=== PATIENT | male | born 1975 | race Caucasian/White ===

== ENCOUNTER 2016-07-18 15:17 | Emergency (ER) | payer OTHER ==
[2016-07-18 16:15] VITALS: BP 118/73
--- NOTE | 2016-07-18 16:38 | ED Physician Documentation ---
PD HPI LOWER EXT INJURY - Stated complaint Stated Complaint: R ANKLE/LEFT KNEE INJ - Chief complaint Chief Complaint: Ext Problem - History obtained from History obtained from: Patient - History of Present Illness PD HPI LOW EXT INJURY LOCATION: Left, Knee Type of injury: Twist Where injury occurred: Work Timing - onset: Today Timing - duration: Hours Timing - details: Abrupt onset, Still present Improved by: Rest, Immobilization Worsened by: Moving, Palpating Associated symptoms: Swelling. 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 Review of Systems Constitutional: denies: Fever Eyes: denies: Decreased vision Ears: denies: Ear pain Nose: denies: Congestion Throat: denies: Sore throat Cardiac: denies: Chest pain / pressure Respiratory: denies: Cough GI: denies: Nausea, Vomiting : denies: Dysuria PD PAST MEDICAL HISTORY - Past Medical History Past Medical History: No Cardiovascular: None Respiratory: None Endocrine/Autoimmune: None GI: None : None HEENT: None Psych: None Musculoskeletal: None Derm: None - Past Surgical History Past Surgical History: Yes General: Other Ortho: Other - Present Medications Home Medications: Ambulatory Orders Medication Instructions Recorded Confirmed HYDROcod/ACETAM 5/325 [[place] 5/325] 1 - 2 ea PO Q6H PRN #15 tablet 07/18/16 Ibuprofen 800 mg PO 07/18/16 - Allergies Allergies/Adverse Reactions: Allergies Allergy/AdvReac Type Severity Reaction Status Date / Time No Known Drug Allergies Allergy Verified 07/18/16 15:33 - Social History Does the pt smoke?: No Smoking Status: Former smoker Does the pt drink ETOH?: No Does the pt have substance abuse?: No - Immunizations Immunizations are current?: Yes PD ED PE NORMAL - Vitals Vital signs reviewed: Yes (hypertensive ) - General General: No acute distress, Well developed/nourished - HEENT HEENT: Atraumatic - Respiratory Respiratory: No respiratory distress - Derm Derm: Normal color, Warm and dry, No rash - Extremities Extremities: No deformity, No edema, Other (There is tenderness to the medial joint line and there is no ligamentous laxity. There is not a palpable effusion. ) - Neuro Neuro: No motor deficit, No sensory deficit - Psych Psych: Normal mood, Normal affect Results - Vitals Vitals: Vital Signs - 24 hr 07/18/16 07/18/16 15:28 16:13 Temperature 36.8 C 36.7 C Heart Rate 94 97 Respiratory 16 13 Rate Blood Pressure 140/70 H 118/73 O2 Saturation 95 98 Oxygen O2 Source Room air - Rads (name of study) left knee Radiology: Prelim report reviewed (impression: Normal knee radiography. ), EMP read indepedently, See rad report Procedures - Splint (location) knee Splint applied by: Tech Type of splint: Other (knee immobilizer) Other: Patient tolerated well, No complications, Neurovascular intact, Good alignment PD MEDICAL DECISION MAKING - ED course Complexity details: reviewed results, re-evaluated patient, considered differential, d/w patient ED course: 41 y/o male with pain in the medial joint line of the left knee after varus forces. He is placed into a knee immobilier Departure - Departure Disposition: 01 Home, Self Care Clinical Impression: Sprain of left knee Qualifiers: Encounter type: initial encounter Involved ligament of knee: unspecified ligament Qualified Code(s): S83.92XA - Sprain of unspecified site of left knee, initial encounter Condition: Stable Instructions: ED Sprain Knee Follow-Up: Nohelia Velasquez PA-C [Primary Care Provider] - Corinna Finch MD [Provider Admit Priv/Credential] - Prescriptions: HYDROcod/ACETAM 5/325 [[place] 5/325] 1 - 2 ea PO Q6H PRN #15 tablet PRN Reason: Pain Forms: Activity restrictions
--- NOTE | 2016-07-18 17:12 | XRAY Preliminary Report ---
Exam: XR Knee 4 View LT IMPRESSION: Normal knee radiography. [facility] SITE ID: [id number]
--- NOTE | 2016-07-18 17:15 | XRAY Report ---
EXAM: LEFT KNEE RADIOGRAPHY EXAM DATE: 07/18/2016 04:41 PM. CLINICAL HISTORY: Medial left knee pain. COMPARISON: None. TECHNIQUE: 3 views. FINDINGS: Bones: Normal. No fractures or bone lesions. Joints: Normal alignment. Joint spaces are maintained. No effusion. Soft Tissues: Normal. No soft tissue swelling. IMPRESSION: Normal knee radiography. [facility] Referring Provider Line: [phone] SITE ID: [id number]
== END 2016-07-18 17:36 | disposition home or self-care (01) ==
LOC: ED 15:17
DX: S83.92XA Sprain of unspecified site of left knee, initial encounter (principal); X58.XXXA Exposure to other specified factors, initial encounter; Y93.89 Activity, other specified; Y99.0 Civilian activity done for income or pay
CPT/HCPCS: 1040M; 73564; 99283

== ENCOUNTER 2018-10-30 08:00 | Outpatient (CLI) | payer BC, OTHER ==
[2018-10-30 18:29] LABS: HGB - HEMOGLOBIN 12.5 g/dL (14.0-18.0); MEAN CORPUSCULAR HGB CONC 32.8 g/dL (32.0-36.0); MEAN CORPUSCULAR VOLUME 91.4 fL (80.0-94.0); MEAN PLATELET VOLUME 8.7 fL (7.4-11.4); RED BLOOD COUNT 4.17 10^6/uL (4.70-6.10); WHITE BLOOD COUNT 12.6 x10^3/uL (4.8-10.8)
== END 2018-10-30 23:59 | disposition home or self-care (01) ==
LOC: LAB.WCP 08:00
PROVIDERS: ATTEND Orthopaedic Surgery
DX: Z01.818 Encounter for other preprocedural examination (principal)
CPT/HCPCS: 36415; 85027

== ENCOUNTER 2019-09-27 15:00 | Outpatient (CLI) | payer OTHER ==
--- NOTE | 2019-09-27 14:16 | XRAY Report ---
PROCEDURE: Ribs 2 View RT INDICATIONS: PLEURODYNIA- RT SIDE TECHNIQUE: 2 views of the right ribs were acquired. COMPARISON: Correlation is made with the accompanying chest radiograph 09/27/2019 FINDINGS: Surgical changes and devices: None. Bones and chest wall: A marker is placed upon the area of pain. At this site, no fractures are seen. No fractures or dislocations are seen elsewhere. No suspicious bony lesions. The overlying soft ti ssues appear unremarkable. Lungs and pleura: The visualized lung appears clear. No pleural effusions or pneumothorax are visib le. IMPRESSION: No discrete rib fractures are seen. Reviewed by: Abiel Keys MD on 09/27/2019 1:15 PM ANAT Approved by: Abiel Keys MD on 09/27/2019 1:15 PM ANAT Station ID: [id number]
--- NOTE | 2019-09-27 14:18 | XRAY Report ---
PROCEDURE: Chest 2 View X-Ray INDICATIONS: PLEURODYNIA- RT SIDE TECHNIQUE: 2 view(s) of the chest. COMPARISON: Correlation is made with the accompanying rib plain films 09/27/2019 FINDINGS: Surgical changes and devices: None. Lungs and pleura: No pleural effusions or pneumothorax. Lungs are clear. Mediastinum: Mediastinal contours are normal. Heart size is normal. Bones and chest wall: No suspicious bony abnormalities. No displaced rib fractures are seen. Soft tissues appear unremarkable. IMPRESSION: No displaced rib fractures are seen. No pneumothorax. Reviewed by: Abiel Keys MD on 09/27/2019 1:16 PM ANAT Approved by: Abiel Keys MD on 09/27/2019 1:16 PM AKDT Station ID: [id number]
== END 2019-09-27 15:30 | disposition home or self-care (01) ==
LOC: DI 15:00
PROVIDERS: ATTEND Physician Assistant
DX: R07.81 Pleurodynia (principal); R07.1 Chest pain on breathing
CPT/HCPCS: 71046

== ENCOUNTER 2023-07-10 07:50 | Outpatient (CLI) | payer OTHER | END 2023-07-10 23:59 | disposition critical access hospital (66) | LOC: EMS 07:50 | DX: R55 Syncope and collapse (principal) | CPT/HCPCS: A0425; A0429 ==

== ENCOUNTER 2023-07-10 08:02 | Emergency (ER) | payer OTHER ==
--- NOTE | 2023-07-10 08:16 | ED Physician Documentation ---
PD HPI SYNCOPE - Stated complaint Stated Complaint: SYNCOPAL EPISODE - History obtained from History obtained from: Patient - History of Present Illness Witnessed: Unwitnessed (he fainted in garage anddaughter came right out then . Pt seemed pale/dusky and apparently not breathing for sure. started chest compressions. Pt roused and groaned soome after. He was blank stare though and not responding otherwise. He was starting to talk by EMS arrival several minutes.) Timing - onset: How many minutes ago (3-4) Duration: Minutes Preceding symptoms: None. No: Headache, Chest pain Associated symptoms: No: Seizure ( did not see any seizure like movements.), Headache, Chest pain, Palpitations, Nausea / vomiting, Abdominal pain Contributing factors: No: Decreased PO intake, Noxious stimulae, Just stood up Injury occurred: No: Head injury, Neck injury Treatment [employer]: Fluids Review of Systems Constitutional: denies: Fever, Chills Nose: denies: Rhinorrhea / runny nose, Congestion Throat: denies: Sore throat Cardiac: denies: Chest pain / pressure, Palpitations, Pedal edema, Calf pain Respiratory: denies: Dyspnea, Cough GI: denies: Abdominal Pain, Nausea, Vomiting, Diarrhea, Bloody / black stool Neurologic: denies: Headache, Head injury PD PAST MEDICAL HISTORY - Past Medical History Cardiovascular: None Respiratory: None Endocrine/Autoimmune: None GI: None : None HEENT: None Psych: None Musculoskeletal: None Derm: None - Past Surgical History Past Surgical History: Yes General: Other Ortho: Other - Present Medications Home Medications: Ambulatory Orders Medication Instructions Recorded Confirmed HYDROcod/ACETAM 5/325 [[place] 5/325] 1 - 2 ea PO Q6H PRN #15 tablet 07/18/16 07/10/23 Ibuprofen 800 mg PO PRN PRN 07/18/16 07/10/23 - Allergies Allergies/Adverse Reactions: Allergies Allergy/AdvReac Type Severity Reaction Status Date / Time No Known Drug Allergies Allergy Verified 07/10/23 08:18 - Living Situation Living Situation: reports: With spouse/s.o. Living Arrangement: reports: At home - Social History Does the pt smoke?: No Smoking Status: Former smoker Does the pt drink ETOH?: No Does the pt have substance abuse?: No - Immunizations Immunizations are current?: Yes PD ED PE NORMAL - Vitals Vital signs reviewed: Yes (sats appear to fluctuate from 86-96% over course of seconds to minute.) - General General: Alert and oriented X 3, No acute distress, Well developed/nourished - HEENT HEENT: Atraumatic, Pharynx benign, Other (no tongue nor lip lesions) - Neck Neck: Supple, no meningeal sign, No adenopathy - Cardiac Cardiac: RRR, No murmur - Respiratory Respiratory: Clear bilaterally - Abdomen Abdomen: Soft, Non tender - Back Back: No spinal TTP - Derm Derm: Normal color, Warm and dry - Extremities Extremities: Normal ROM s pain - Neuro Neuro: Alert and oriented X 3, first beater 2-12 intact, No motor deficit, No sensory deficit, Normal speech Results - Vitals Vitals: Vital Signs - 24 hr 07/10/23 07/10/23 07/10/23 08:09 08:47 09:30 Temperature 36.9 C Heart Rate 107 H 88 80 Respiratory 15 18 11 L Rate Blood Pressure 170/127 H 163/106 H 141/93 H O2 Saturation 86 L 97 97 If not protocol 2 : Oxygen Flow, liters/minute 07/10/23 07/10/23 07/10/23 10:00 10:30 11:00 Temperature Heart Rate 78 83 77 Respiratory 9 L 13 14 Rate Blood Pressure 145/98 H 159/108 H 156/105 H O2 Saturation 97 95 96 If not protocol : Oxygen Flow, liters/minute 07/10/23 11:30 Temperature 36.7 C Heart Rate 80 Respiratory 13 Rate Blood Pressure 141/103 H O2 Saturation 95 If not protocol : Oxygen Flow, liters/minute Oxygen O2 Source Room air - EKG (time done) 08:15 EKG releavant findings:: EKG personally interpreted by author of this note. Relevant findings are: Rate: Rate (enter#) (96) Rhythm: NSR [place]: Normal Intervals: Normal VA QRS: Normal Ischemia: Normal ST segments. No: ST elevation c/w ischemia, ST depression - Labs Labs: Laboratory Tests 07/10/23 07/10/23 07/10/23 08:10 08:10 08:10 WBC 8.4 RBC 4.64 L Hgb 13.3 L Hct 40.9 L MCV 88.1 MCH 28.7 MCHC 32.5 RDW 14.0 Plt Count 224 MPV 8.4 Neut # (Auto) 5.0 Lymph # (Auto) 2.5 [place] # (Auto) 0.8 Eos # (Auto) 0.1 Baso # (Auto) 0.0 Absolute Nucleated RBC 0.00 Nucleated RBC % 0.0 Sodium 135 Potassium 3.5 Chloride 99 L Carbon Dioxide 29 Anion Gap 7.0 BUN 18 Creatinine 1.2 Estimated GFR (MDRD) 65 L Glucose 185 H Calcium 9.4 Magnesium 2.0 Total Bilirubin 0.6 AST 18 ALT 22 Alkaline Phosphatase 50 Troponin I High Sens 9.9 B-Natriuretic Peptide 37 Total Protein 7.1 Albumin 4.4 Globulin 2.7 Albumin/Globulin Ratio 1.6 Lipase < 10 L Prolactin 52.07 Salicylates < 1.5 Urine Opiates Screen Ur Buprenorphine Scrn Ur Oxycodone Screen Urine Methadone Screen Acetaminophen 0.2 Ur Barbiturates Screen Ur Tricyclics Screen Ur Phencyclidine Scrn Ur Amphetamine Screen U Methamphetamines Scrn U Benzodiazepines Scrn Urine Cocaine Screen U Cannabinoids Screen Ur Drug Screen Comment Ethyl Alcohol < 10.0 07/10/23 10:15 WBC RBC Hgb Hct MCV MCH MCHC RDW Plt Count MPV Neut # (Auto) Lymph # (Auto) [place] # (Auto) Eos # (Auto) Baso # (Auto) Absolute Nucleated RBC Nucleated RBC % Sodium Potassium Chloride Carbon Dioxide Anion Gap BUN Creatinine Estimated GFR (MDRD) Glucose Calcium Magnesium Total Bilirubin AST ALT Alkaline Phosphatase Troponin I High Sens B-Natriuretic Peptide Total Protein Albumin Globulin Albumin/Globulin Ratio Lipase Prolactin Salicylates Urine Opiates Screen NEGATIVE Ur Buprenorphine Scrn NEGATIVE Ur Oxycodone Screen NEGATIVE Urine Methadone Screen NEGATIVE Acetaminophen Ur Barbiturates Screen NEGATIVE Ur Tricyclics Screen NEGATIVE Ur Phencyclidine Scrn NEGATIVE Ur Amphetamine Screen NEGATIVE U Methamphetamines Scrn NEGATIVE U Benzodiazepines Scrn NEGATIVE Urine Cocaine Screen NEGATIVE U Cannabinoids Screen POSITIVE H Ur Drug Screen Comment CUTOFF CONC BELOW: Ethyl Alcohol - Rads (name of study) chest xray Relevant Findings:: Prelim report reviewed, EMP independent interpretation of test (no acute process) head CT Relevant Findings:: Prelim report reviewed (no acute process. No ICH.), EMP independent interpretation of test chest angio Relevant Findings:: Prelim report reviewed (no central emboli nor other acute parenchymal process. Artifact symettrically in periphery so cannot exclude small PEs. ) PD Medical Decision Making - ED course Complexity details: reviewed results (normal ECG and troponin, lytes, blood sugar. CXR. Head CT also normal without signs of bleeding, edema, mass. CT-A of chest done as his sats seemed to fluctuate initially in ED with good pleth reading. This showed no central PE (symmetric artifact contrast timing? peripherally).), considered differential (Patient is feeling okay here without lightheadedness. Normal vitals during ED stay. Unclear cause of his symptoms/episode. ), d/w patient ED course: The patient had syncope for which states he appeared dusky and did not appear breathing.She did CPR until he awoke and moving, but then he still seemed dazed. Conversant but confused nEMS arrival per medics. Pt states some chest soreness feeling musculoskeletal (presume from CPR). No headache. Did not have chest pain nor other pains prior to syncoope, no warning symptoms. Apparently with similar syncope not witnessed a week ago. [place] okay in the interval. Consideration of intermittent arrhythmia. He has normal ECG here with normal QT interval and monitor here without ectopy. On exam, no tongue nor lip lesions to correlate with seizures, and states no obvious seizure movements, but does not exclude it. He does have elevated prolactin level but is not specific to seizure, as can elevate in syncope as well, but is reasonably elevated. So seizure consideation. I talked with Dr. Fernandez's office nurse. He is out today but she will pass on note to [employer] provider that I was suggesting [employer] and consider neuro consult/EEG. Pt with followup appt July 23 scheduled by our [facility]. Syncope but not obvious seizure so I did not report to [facility]. Departure - Departure Disposition: Home, Self Care Clinical Impression: Syncopal episodes Condition: Stable Record reviewed to determine appropriate education?: Yes Instructions: ED Fainting Unkn Cause Comments: Your CT scan of the head does not show any signs of bleeding or tumors or swelling. The CT of your chest does not show any signs of obvious enlarged heart, heart failure, blood clots. There was some slight artifact that likely relates to timing of the dye contrast. The radiology reading was some artifact on the scan so unable to conclude no very small blood clots in the periphery of the lungs. However larger central clots are the ones that would cause symptoms such as yours and those are negative. No signs of heart attack or abnormal heart rhythms here. A blood test called prolactin was elevated which can correlate with seizure type activity but could elevate with just a fainting episode 2. Considerations therefore are in intermittent irregular heart rhythm which can cause improper blood flow to the brain and cause fainting episodes. This would want to be evaluated with a wearable heart monitor that you wear over the course of a week or so. Other consideration could be new onset seizures and could present with the sym ptoms you have had. This also would likely want further testing to evaluate such as an EEG. I would suggest no working with hand power tools such as [employer] etc. or up working on [employer] and not driving until follow-up with your primary care such that if you have another fainting episode it is not in a dangerous place. I was going to talk with your primary care about these tests that could be done prior to your follow-up visit. He has not called back as yet but I will talk to him when he does. Forms: PCP List Discharge Date/Time: 07/10/23 11:31
[2023-07-10 08:29] LABS: BASOPHILS % (AUTO) 0.5 %; EOSINOPHILS # (AUTO) 0.1 10^3/uL (0.0-0.7); EOSINOPHILS % (AUTO) 1.4 %; HCT - HEMATOCRIT 40.9 % (42.0-52.0); HGB - HEMOGLOBIN 13.3 g/dL (14.0-18.0); LYMPHOCYTES # (AUTO) 2.5 10^3/uL (1.5-3.5); LYMPHOCYTES % (AUTO) 29.2 %; MEAN CORPUSCULAR HEMOGLOBIN 28.7 pg (27.0-31.0); MEAN CORPUSCULAR HGB CONC 32.5 g/dL (32.0-36.0); MEAN CORPUSCULAR VOLUME 88.1 fL (80.0-94.0); MEAN PLATELET VOLUME 8.4 fL (7.4-11.4); MONOCYTES # (AUTO) 0.8 10^3/uL (0.0-1.0); MONOCYTES % (AUTO) 9.6 %; NEUTROPHILS % (AUTO) 59.1 %; PLT - PLATELET COUNT 224 10^3/uL (130-450); RED BLOOD COUNT 4.64 10^6/uL (4.70-6.10); WHITE BLOOD COUNT 8.4 x10^3/uL (4.8-10.8)
[2023-07-10] MEDS ORDERED: iohexoL-300 100 ML VIAL ONE (08:41)
[2023-07-10 08:42] LABS: ACETAMINOPHEN 0.2 ug/mL; ALBUMIN 4.4 g/dL (3.2-5.5); ALBUMIN/GLOBULIN RATIO 1.6 (1.0-2.2); ALKALINE PHOSPHATASE 50 IU/L (42-121); ALT ALANINE AMINOTRANSFERASE 22 IU/L (10-60); AST ASPARTATE AMINOTRANSFERASE 18 IU/L (10-42); BILIRUBIN,TOTAL 0.6 mg/dL (0.2-1.0); BUN - BLOOD UREA NITROGEN 18 mg/dL (6-20); CALCIUM 9.4 mg/dL (8.5-10.3); CARBON DIOXIDE - CO2 29 mmol/L (21-32); CHLORIDE 99 mmol/L (101-111); CREATININE 1.2 mg/dL (0.6-1.3); ETOH - ETHANOL < 10.0 mg/dL; GFR - MDRD 65 (>89); GLUCOSE 185 mg/dL (74-104); POTASSIUM 3.5 mmol/L (3.5-4.5); SODIUM 135 mmol/L (135-145); TOTAL PROTEIN 7.1 g/dL (6.4-8.9)
--- NOTE | 2023-07-10 08:42 | XRAY Report ---
PROCEDURE: Chest 1V INDICATIONS: chest pain TECHNIQUE: One view of the chest was acquired. COMPARISON: 09/27/2019 FINDINGS: Surgical changes and devices: None. Lungs and pleura: No pleural effusions or pneumothorax. Lungs are clear. Mediastinum: Mediastinal contours appear normal. Heart size is normal. Bones and chest wall: No suspicious bony lesions. Overlying soft tissues appear unremarkable. IMPRESSION: No acute cardiopulmonary process. Reviewed by: Timoteo Cartagena MD on 07/10/2023 8:40 AM PDT Approved by: Timoteo Cartagena MD on 07/10/2023 8:40 AM PDT Station ID: [id number]
[2023-07-10 08:46] LABS: TROPONIN I HIGH SENSITIVITY 9.9 ng/L (2.3-19.7)
[2023-07-10] MEDS: SODIUM CHLORIDE 0.9% 1,000 ML IV STA (08:46)
[2023-07-10 08:52] LABS: LIPASE < 10 U/L (11-82); SALICYLATE < 1.5 mg/dL
--- NOTE | 2023-07-10 08:57 | CT Report ---
PROCEDURE: Head WO INDICATIONS: fall, struck head TECHNIQUE: Noncontrast 4.5 mm thick angled axial sections acquired from the foramen magnum to the vertex. For r adiation dose reduction, the following was used: automated exposure control, adjustment of mA and/or kV according to patient size. COMPARISON: None. FINDINGS: Image quality: Excellent. CSF spaces: Basal cisterns are patent. No extra-axial fluid collections. Ventricles are normal in size and shape. Brain: No midline shift. No intracranial masses or hemorrhage. Lau-white matter interface is norm al. Skull and face: Calvarium and visualized facial bones are intact, without suspicious lesions. Sinuses: Visualized sinuses and mastoids are clear. IMPRESSION: No acute intracranial pathology. Reviewed by: Yoana Kwong MD on 07/10/2023 8:55 AM PDT Approved by: Yoana Kwong MD on 07/10/2023 8:55 AM PDT Station ID: [id number]
--- NOTE | 2023-07-10 08:59 | CT Report ---
PROCEDURE: Angio Chest INDICATIONS: syncope, hypoxia CONTRAST: Omni 300 80ml TECHNIQUE: After the administration of intravenous contrast, 2 mm axial images were acquired from the pulmonary apices to the posterior costophrenic angles during the arterial phase. In addition, 1 mm lung kernel and 5 mm soft tissue kernel reconstructions were performed. 3-dimensional coronal oblique maximum int ensity projection (MIP) reformats, 8 mm axial MIP, and 5 mm coronal and sagittal MPR reformats were t hen performed through the thorax. For radiation dose reduction, the following was used: automated exp osure control, adjustment of mA and/or kV according to patient size. COMPARISON: Chest x-ray 07/10/2023 FINDINGS: Image quality: Artifact is present within the segmental branches of the pulmonary arteries bilaterall y. Large vessels: No filling defects within the opacified pulmonary arteries, accounting for motion and contrast timing there is heterogeneous appearance within the majority of the segmental branches of th e pulmonary arteries bilaterally. Lungs and pleura: No consolidation. No pleural effusions. No pneumothorax. No suspicious pulmonary n odules which require follow up. Mediastinum: Heart size is normal. No pericardial effusion. No large vessel abnormality. No mediastin al adenopathy by size criteria. Chest wall and lower neck: Thyroid is unremarkable. No axillary or supraclavicular adenopathy by size . Bones: No aggressive osseous abnormality. Upper Abdomen: Unremarkable. IMPRESSION: No central pulmonary embolus. There is a heterogeneous appearance of the segmental branches bilateral ly. While this is suspected to be artifactual given diffuse appearance, emboli cannot be definitively excluded. Reviewed by: Yoana Kwong MD on 07/10/2023 8:58 AM PDT Approved by: Yoana Kwong MD on 07/10/2023 8:58 AM PDT Station ID: [id number]
[2023-07-10 09:00] LABS: PROLACTIN 52.07 ng/mL
[2023-07-10 10:44] LABS: AMPHETAMINE SCREEN,URINE NEGATIVE (NEGATIVE); BARBITURATE SCREEN,UR NEGATIVE (NEGATIVE); BENZODIAZEPINES SCREEN, URINE NEGATIVE (NEGATIVE); BUPRENORPHINE SCREEN, URINE NEGATIVE (NEGATIVE); COCAINE SCREEN URINE NEGATIVE (NEGATIVE); METHADONE SCREEN, URINE NEGATIVE (NEGATIVE); METHAMPHETAMINES SCREEN, URINE NEGATIVE (NEGATIVE); OPIATE SCREEN, URINE NEGATIVE (NEGATIVE); OXYCODONE SCREEN, URINE NEGATIVE (NEGATIVE); THC CANNABINOID SCREEN, URINE POSITIVE (NEGATIVE); TRICYCLIC ANTIDEPRESSANT,URINE NEGATIVE (NEGATIVE)
[2023-07-10 11:37] VITALS: BP 141/103; O2SAT 95
[2023-07-10] MEDS: iohexoL-300 100 ML VIAL IVP ONE (14:26)
== END 2023-07-10 11:31 | disposition home or self-care (01) ==
LOC: EDUNIT# → ED 08:02
DX: R55 Syncope and collapse (principal); Z87.891 Personal history of nicotine dependence
CPT/HCPCS: 36415; 70450; 71045; 71275; 80053; 80143; 80179; 80306; 82077; 83690; 83735; 83880; 84146; 84484; 85025; 93005; 99284; Q9967

== ENCOUNTER 2023-08-28 23:03 | Outpatient (CLI) | payer OTHER | END 2023-08-28 23:59 | disposition critical access hospital (66) | LOC: EMS 23:03 | DX: R55 Syncope and collapse (principal); R00.0 Tachycardia, unspecified; R63.8 Other symptoms and signs concerning food and fluid intake | CPT/HCPCS: A0425; A0427 ==

== ENCOUNTER 2023-08-28 23:11 | Emergency (ER) | payer OTHER ==
[2023-08-28] MEDS: SODIUM CHLORIDE 0.9% 1,500 ML IV STA (23:12)
--- NOTE | 2023-08-28 23:29 | ED Physician Documentation ---
History of Present Illness - Stated complaint Stated Complaint: SYNCOPE - Chief complaint Chief Complaint: Neuro - History obtained from History obtained from: Patient - Additonal information Additional information: 48-year-old man, previously healthy, presents after syncopal episode today just prior to arrival. 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 He does not think he hit his head. Denies headache, vision changes, nausea, diaphoresis, but does state that he feels sleepy and tired. He also states that his house is very warm this time of year and they do not have central AC. PD PAST MEDICAL HISTORY - Past Medical History Cardiovascular: None Respiratory: None Endocrine/Autoimmune: None GI: None : None HEENT: None Psych: None Musculoskeletal: None Derm: None - Past Surgical History Past Surgical History: Yes General: Other Ortho: Other - Present Medications Home Medications: Ambulatory Orders Medication Instructions Recorded Confirmed No Known Home Medications 08/28/23 08/28/23 - Allergies Allergies/Adverse Reactions: Allergies Allergy/AdvReac Type Severity Reaction Status Date / Time No Known Drug Allergies Allergy Verified 08/28/23 23:27 - Social History Does the pt smoke?: No Smoking Status: Former smoker Does the pt drink ETOH?: No Does the pt have substance abuse?: No - Immunizations Immunizations are current?: Yes - POLST Patient has POLST: No PD ED PE NORMAL - Vitals Vital signs reviewed: Yes - General General: Alert and oriented X 3, No acute distress, Well developed/nourished - HEENT HEENT: Atraumatic, PERRL, EOMI - Neck Neck: Supple, no meningeal sign - Cardiac Cardiac: Other (Tachycardic rate regular rhythm) - Respiratory Respiratory: No respiratory distress, Clear bilaterally - Abdomen Abdomen: Non tender, Non distended - Derm Derm: Normal color, Warm and dry - Neuro Neuro: Alert and oriented X 3, private branch exchange repairer 2-12 intact, No motor deficit, No sensory deficit, Normal speech Eye Opening: Spontaneous Motor: Obeys Commands Verbal: Oriented GCS Score: 15 - Psych Psych: Normal mood, Normal affect Results - Vitals Vitals: Vital Signs - 24 hr 08/28/23 08/28/23 08/28/23 23:12 23:31 23:59 Temperature 36.8 C Heart Rate 133 H 127 H 124 H Respiratory 15 23 13 Rate Blood Pressure 131/115 H 177/115 H 182/111 H O2 Saturation 96 96 97 08/29/23 08/29/23 08/29/23 00:01 00:40 00:55 Temperature 36.7 C Heart Rate 121 H 130 H 118 H Respiratory 13 18 14 Rate Blood Pressure 175/109 H 163/110 H 168/112 H O2 Saturation 99 100 100 Oxygen O2 Source Room air - EKG (time done) 2330 EKG releavant findings:: EKG personally interpreted by author of this note. Relevant findings are: Rate: Rate (enter#) (121) Rhythm: Sinus tachycardia [place]: Normal Intervals: Normal [place] QRS: Normal Ischemia: Normal ST segments - Labs Labs: Laboratory Tests 08/28/23 08/28/23 23:30 23:30 WBC 11.9 H RBC 4.58 L Hgb 13.4 L Hct 40.1 L MCV 87.6 MCH 29.3 MCHC 33.4 RDW 13.7 Plt Count 351 MPV 8.2 Neut # (Auto) 5.7 Lymph # (Auto) 4.6 H [place] # (Auto) 0.9 Eos # (Auto) 0.3 Baso # (Auto) 0.1 Absolute Nucleated RBC 0.00 Nucleated RBC % 0.0 Sodium 137 Potassium 3.5 Chloride 101 Carbon Dioxide 26 Anion Gap 10.0 BUN 16 Creatinine 1.2 Estimated GFR (MDRD) 65 L Glucose 210 H Calcium 8.8 Total Bilirubin 0.3 AST 19 ALT 27 Alkaline Phosphatase 52 Total Protein 7.0 Albumin 4.3 Globulin 2.7 Albumin/Globulin Ratio 1.6 Lipase 13 PD Medical Decision Making - ED course ED course: 40-year-old man presents with syncopal episode after a day of strenuous outdoor manual labor in the sun and being active in his heart house this evening. Patient has benign physical exam albeit with some sinus tachycardia. Plan to obtain screening labs, EKG, chest x-ray and provide with 1.5 L of IV fluids and reevaluate. Note patient is feeling better s/p IVF. His HR is improved. Cardiac monitoring and ekg are benign. He had some high BP and says he is supposed to be on metoprolol but hasn't taken it in a while. Went ahead and provided one time dose IV with improvement in BP. He did have a recent ED visit 07/10/23 with extensive workup that was negative. Likely vasovagal syncope related to exertion/dehydration. plan to dc home to [facility] with PCP re hypertension and hyperglycemia. He already has echocardiogram and outpatient cardiac monitoring scheduled. return precautions given. Departure - Departure Clinical Impression: Syncope, Hyperglycemia, Dehydration after exertion Condition: Stable Instructions: ED Syncope Vasovagal Comments: You were seen in the emergency department for evaluation after fainting. Your workup was normal for the most part, but your blood sugar was a little high. You may benefit from further evaluation by your primary care provider for diabetes. Make sure you stay well hydrated and rest regularly during the day. Please follow-up with your primary care provider and return to the emergency department if you have any new or worsening symptoms or other concerns. Forms: PCP List
[2023-08-28 23:35] LABS: BASOPHILS # (AUTO) 0.1 10^3/uL (0.0-0.1); BASOPHILS % (AUTO) 0.8 %; EOSINOPHILS # (AUTO) 0.3 10^3/uL (0.0-0.7); EOSINOPHILS % (AUTO) 2.6 %; HCT - HEMATOCRIT 40.1 % (42.0-52.0); HGB - HEMOGLOBIN 13.4 g/dL (14.0-18.0); LYMPHOCYTES # (AUTO) 4.6 10^3/uL (1.5-3.5); MEAN CORPUSCULAR HEMOGLOBIN 29.3 pg (27.0-31.0); MEAN CORPUSCULAR HGB CONC 33.4 g/dL (32.0-36.0); MEAN CORPUSCULAR VOLUME 87.6 fL (80.0-94.0); MEAN PLATELET VOLUME 8.2 fL (7.4-11.4); MONOCYTES # (AUTO) 0.9 10^3/uL (0.0-1.0); MONOCYTES % (AUTO) 7.4 %; NEUTROPHILS # (AUTO) 5.7 10^3/uL (1.5-6.6); NEUTROPHILS % (AUTO) 47.7 %; PLT - PLATELET COUNT 351 10^3/uL (130-450); RED BLOOD COUNT 4.58 10^6/uL (4.70-6.10); RED CELL DISTRIBUTION WIDTH 13.7 % (12.0-15.0); WHITE BLOOD COUNT 11.9 x10^3/uL (4.8-10.8)
[2023-08-28 23:51] LABS: ALBUMIN 4.3 g/dL (3.2-5.5); ALBUMIN/GLOBULIN RATIO 1.6 (1.0-2.2); BILIRUBIN,TOTAL 0.3 mg/dL (0.2-1.0); CALCIUM 8.8 mg/dL (8.5-10.3); CREATININE 1.2 mg/dL (0.6-1.3); POTASSIUM 3.5 mmol/L (3.5-4.5)
--- NOTE | 2023-08-28 23:55 | XRAY Report ---
PROCEDURE: Chest 1V INDICATIONS: Chest Pain TECHNIQUE: One view of the chest was acquired. COMPARISON: CT chest 07/10/2023, chest x-ray 07/10/2023. FINDINGS: Surgical changes and devices: None. Lungs and pleura: No pleural effusions or pneumothorax. Lungs are clear. Mediastinum: Mediastinal contours appear normal. Heart size is normal. Bones and chest wall: No suspicious bony lesions. Overlying soft tissues appear unremarkable. IMPRESSION: No acute cardiopulmonary process. Reviewed by: Yoana Kwong MD on 08/28/2023 11:54 PM PDT Approved by: Yoana Kwong MD on 08/28/2023 11:54 PM PDT Station ID: [id number]
[2023-08-29] MEDS: SODIUM CHLORIDE 0.9% 1,000 ML IV STA (00:32)
[2023-08-29 01:08] LABS: BILIRUBIN,URINE NEGATIVE (NEGATIVE); GLUCOSE, URINE (UA) NEGATIVE (NEGATIVE); KETONES,URINE (UA) NEGATIVE (NEGATIVE); LEUKOCYTE ESTERASE, URINE NEGATIVE (NEGATIVE); NITRITE,URINE NEGATIVE (NEGATIVE); OCCULT BLOOD,URINE NEGATIVE (NEGATIVE); PH,URINE 5.5 PH (5.0-7.5); PROTEIN,URINE NEGATIVE (NEGATIVE); UROBILINOGEN,URINE 0.2 (NORMAL) E.U./dL (NORMAL)
[2023-08-29 01:13] LABS: CLARITY,URINE CLEAR (CLEAR)
[2023-08-29 01:16] LABS: BACTERIA,URINE Rare /HPF (None Seen); CASTS, URINE 6-10 Hyaline Casts /LPF; RBC,URINE 0-5 /HPF (0-5); SQUAMOUS EPITHELIAL CELL,UR FEW Squamous (<= Few); WBC,URINE 0-3 /HPF (0-3)
[2023-08-29] MEDS: METOPROLOL 5 MG/5 ML VIAL IVP STA (01:17)
[2023-08-29 02:12] VITALS: BP 161/108; O2SAT 95
== END 2023-08-29 02:08 | disposition home or self-care (01) ==
LOC: EDUNIT# → ED 23:11
DX: R55 Syncope and collapse (principal); E86.0 Dehydration; R73.9 Hyperglycemia, unspecified; I10 Essential (primary) hypertension; T44.7X6A Underdosing of beta-adrenoreceptor antagonists, initial encounter; Z87.891 Personal history of nicotine dependence
CPT/HCPCS: 36415; 80053; 81001; 83690; 85025; 87086; 93005; 96361; 96374; 99284

== ENCOUNTER 2023-08-31 10:45 | Outpatient (CLI) | payer OTHER | END 2023-08-31 23:59 | disposition critical access hospital (66) | LOC: EMS 10:45 | DX: R41.82 Altered mental status, unspecified (principal); S00.03XA Contusion of scalp, initial encounter; W18.30XA Fall on same level, unspecified, initial encounter; Y92.008 Other place in unspecified non-institutional (private) residence as the place of occurrence of the external cause | CPT/HCPCS: A0425; A0427 ==

== ENCOUNTER 2023-08-31 10:58 | Emergency (ER) | payer OTHER ==
--- NOTE | 2023-08-31 11:11 | ED Physician Documentation ---
PD HPI SYNCOPE - Stated complaint Stated Complaint: UNRESPONSIVE - Chief complaint Chief Complaint: Neuro - History obtained from History obtained from: Patient, Family, EMS - History of Present Illness Witnessed: Witnessed Preceding symptoms: Headache (Patient states he has had a mild headache for the past 2 to 3 days, 2-3 out of 10) Associated symptoms: No: Seizure, Incontinant of urine, Incontinant of stool, Vision changes, Chest pain, Palpitations, Diaphoresis, Dyspnea, Nausea / vomiting, Abdominal pain Contributing factors: No: Recent med change, Decreased PO intake, Noxious stimulae Injury occurred: Fell, Head injury, Neck injury Pain level max: 3 Pain level now: 3 Treatment ASSISTANT CURATOR: Narcan - Additional information Additional information: Patient is a 48-year-old male who has a history of syncope in the past. Today he states that he "passed out". Bystander CPR was performed, though he never lost a pulse and was breathing the entire time. EMS states that he had "pinpoin t pupils". They state that they gave him 0.5 mg of Narcan which awoke the patient. Patient denies any narcotic use that he is aware of. He states he did use marijuana. He also occasionally drinks alcohol. Denies any alcohol use today. He states he has been worked up by cardiology for recurrent syncopal events. Patient complains of mild neck pain and mild posterior head pain. Not on blood thinners. No numbness or tingling. Review of Systems Constitutional: denies: Fever, Chills Ears: denies: Ear pain Nose: denies: Rhinorrhea / runny nose, Congestion Throat: denies: Sore throat Respiratory: denies: Cough GI: denies: Nausea, Vomiting, Diarrhea Skin: denies: Rash Musculoskeletal: denies: Back pain Neurologic: denies: Focal weakness, Numbness, Confused, Altered mental status PD PAST MEDICAL HISTORY - Past Medical History Past Medical History: Yes Cardiovascular: None Respiratory: None Neuro: Migraines, Other Endocrine/Autoimmune: None GI: None : None HEENT: None Psych: None Musculoskeletal: None Derm: None - Past Surgical History Past Surgical History: No General: Other Ortho: Spine surgery Derm: Other - Present Medications Home Medications: Ambulatory Orders Medication Instructions Recorded Confirmed No Known Home Medications 08/28/23 08/28/23 - Allergies Allergies/Adverse Reactions: Allergies Allergy/AdvReac Type Severity Reaction Status Date / Time No Known Drug Allergies Allergy Verified 08/31/23 11:43 - Social History Does the pt smoke?: No Smoking Status: Never smoker Does the pt drink ETOH?: Yes ETOH Use: Beer Does the pt have substance abuse?: No Substance Use and Type: Marijuana - Immunizations Immunizations are current?: Yes - POLST Patient has POLST: No PD ED PE NORMAL - Vitals Vital signs reviewed: Yes - General General: Alert and oriented X 3, No acute distress - HEENT HEENT: Atraumatic, PERRL, Moist mucous membranes - Neck Neck: Supple, no meningeal sign, Other (Mild upper C-spine tenderness to palpation without step-off or deformity. Patient was maintained in a cervical collar.) - Cardiac Cardiac: RRR - Respiratory Respiratory: Clear bilaterally - Abdomen Abdomen: Soft, Non tender, Non distended - Back Back: No spinal TTP - Derm Derm: Warm and dry - Extremities Extremities: No deformity, Normal ROM s pain - Neuro Neuro: Alert and oriented X 3, test skein winder 2-12 intact, No motor deficit, No sensory deficit, Normal speech Eye Opening: Spontaneous Motor: Obeys Commands Verbal: Oriented GCS Score: 15 - Psych Psych: Normal mood, Normal affect Results - Vitals Vitals: Vital Signs - 24 hr 08/31/23 08/31/23 08/31/23 10:57 11:42 13:05 Temperature 36.0 C L Heart Rate 101 H 117 H 85 Respiratory 18 20 16 Rate Blood Pressure 138/114 H 149/96 H 137/94 H O2 Saturation 98 99 99 08/31/23 13:31 Temperature Heart Rate 85 Respiratory 15 Rate Blood Pressure 137/94 H O2 Saturation 94 Oxygen O2 Source Room air - EKG (time done) 1056 EKG releavant findings:: EKG personally interpreted by author of this note. Relevant findings are: Rate: Rate (enter#) (91) Rhythm: NSR [place]: Normal Intervals: Normal [place] QRS: Normal Ischemia: Normal ST segments - Labs Labs: Laboratory Tests 08/31/23 08/31/23 08/31/23 11:14 11:14 12:10 WBC 7.5 RBC 4.65 L Hgb 13.3 L Hct 41.3 L MCV 88.8 MCH 28.6 MCHC 32.2 RDW 13.6 Plt Count 256 MPV 8.2 Neut # (Auto) 5.3 Lymph # (Auto) 1.5 [place] # (Auto) 0.5 Eos # (Auto) 0.2 Baso # (Auto) 0.0 Absolute Nucleated RBC 0.00 Nucleated RBC % 0.0 Sodium 136 Potassium 4.2 Chloride 99 L Carbon Dioxide 32 Anion Gap 5.0 L BUN 12 Creatinine 0.9 Estimated GFR (MDRD) 90 Glucose 167 H Calcium 9.0 Total Bilirubin 0.6 AST 21 ALT 22 Alkaline Phosphatase 54 Troponin I High Sens 14.7 Total Protein 6.6 Albumin 4.3 Globulin 2.3 Albumin/Globulin Ratio 1.9 Lipase < 10 L Urine Color YELLOW Urine Clarity CLEAR Urine pH 7.0 Ur Specific [place] 1.015 Urine Protein NEGATIVE Urine Glucose (UA) NEGATIVE Urine Ketones NEGATIVE Urine Occult Blood NEGATIVE Urine Nitrite NEGATIVE Urine Bilirubin NEGATIVE Urine Urobilinogen 0.2 (NORMAL) Ur Leukocyte Esterase NEGATIVE Ur Microscopic Review NOT INDICATED Urine Culture Comments NOT INDICATED Urine Opiates Screen NEGATIVE Ur Buprenorphine Scrn NEGATIVE Ur Oxycodone Screen NEGATIVE Urine Methadone Screen NEGATIVE Ur Barbiturates Screen NEGATIVE Ur Tricyclics Screen NEGATIVE Ur Phencyclidine Scrn NEGATIVE Ur Amphetamine Screen NEGATIVE U Methamphetamines Scrn NEGATIVE U Benzodiazepines Scrn NEGATIVE Urine Cocaine Screen NEGATIVE U Cannabinoids Screen POSITIVE H Ur Drug Screen Comment CUTOFF CONC BELOW: Ethyl Alcohol < 10.0 PD Medical Decision Making - ED course Complexity details: reviewed results, re-evaluated patient, considered differential (No ST elevation [place], no aortic dissection, no PE, no tension pneumothorax, no aortic aneurysm), d/w patient ED course: 48-year-old male with a history of recurrent syncopal events, unclear etiology. No acute findings today. GCS 15. Normal neuroexam. Ambulating without difficulty. Tolerating p.o. without difficulty. Normal cardiac exam. Does not wish to stay for observation. No acute findings on telemetry. Recommend that he follow-up with his PCP for further care. Recommend he return if he worsens. Patient counseled regarding signs and symptoms for which I believe and urgent re-evaluation would be necessary. Patient with good understanding of and agreement to plan and is comfortable going home at this time This document was made in part using voice recognition software. While efforts are made to proofread this document, sound alike and grammatical errors may occur. Departure - Departure Disposition: 01 Home, Self Care Clinical Impression: Syncopal episodes Qualifiers: Syncope type: unspecified Qualified Code(s): R55 - Syncope and collapse Condition: Good Instructions: ED Fainting Unkn Cause Follow-Up: Your,doctor in 1 week [Other] Comments: The cause of your syncopal events is unclear, please follow-up with cardiology on September 09 as scheduled. Please return if you worsen. Make sure you are drinking plenty of water at home. Your testing today does not show any acute abnormalities. Forms: PCP List Discharge Date/Time: 08/31/23 13:32
[2023-08-31 11:18] LABS: BASOPHILS % (AUTO) 0.4 %; EOSINOPHILS # (AUTO) 0.2 10^3/uL (0.0-0.7); HCT - HEMATOCRIT 41.3 % (42.0-52.0); HGB - HEMOGLOBIN 13.3 g/dL (14.0-18.0); LYMPHOCYTES # (AUTO) 1.5 10^3/uL (1.5-3.5); LYMPHOCYTES % (AUTO) 19.5 %; MEAN CORPUSCULAR HEMOGLOBIN 28.6 pg (27.0-31.0); MEAN CORPUSCULAR HGB CONC 32.2 g/dL (32.0-36.0); MEAN CORPUSCULAR VOLUME 88.8 fL (80.0-94.0); MEAN PLATELET VOLUME 8.2 fL (7.4-11.4); MONOCYTES # (AUTO) 0.5 10^3/uL (0.0-1.0); NEUTROPHILS # (AUTO) 5.3 10^3/uL (1.5-6.6); NEUTROPHILS % (AUTO) 70.8 %; PLT - PLATELET COUNT 256 10^3/uL (130-450); RED BLOOD COUNT 4.65 10^6/uL (4.70-6.10); RED CELL DISTRIBUTION WIDTH 13.6 % (12.0-15.0); WHITE BLOOD COUNT 7.5 x10^3/uL (4.8-10.8)
[2023-08-31] MEDS: SODIUM CHLORIDE 0.9% 1,000 ML IV STA ×2 (11:22→12:28)
[2023-08-31 11:36] LABS: ALBUMIN 4.3 g/dL (3.2-5.5); ALBUMIN/GLOBULIN RATIO 1.9 (1.0-2.2); ALKALINE PHOSPHATASE 54 IU/L (42-121); ALT ALANINE AMINOTRANSFERASE 22 IU/L (10-60); AST ASPARTATE AMINOTRANSFERASE 21 IU/L (10-42); BILIRUBIN,TOTAL 0.6 mg/dL (0.2-1.0); BUN - BLOOD UREA NITROGEN 12 mg/dL (6-20); CARBON DIOXIDE - CO2 32 mmol/L (21-32); CHLORIDE 99 mmol/L (101-111); CREATININE 0.9 mg/dL (0.6-1.3); ETOH - ETHANOL < 10.0 mg/dL; GFR - MDRD 90 (>89); GLUCOSE 167 mg/dL (74-104); POTASSIUM 4.2 mmol/L (3.5-4.5); SODIUM 136 mmol/L (135-145); TOTAL PROTEIN 6.6 g/dL (6.4-8.9)
[2023-08-31 11:38] LABS: LIPASE < 10 U/L (11-82); TROPONIN I HIGH SENSITIVITY 14.7 ng/L (2.3-19.7)
--- NOTE | 2023-08-31 12:01 | XRAY Report ---
PROCEDURE: Chest 1V INDICATIONS: Chest Pain TECHNIQUE: One view of the chest was acquired. COMPARISON: 08/28/2023. Correlation is also made with chest CT, 07/10/2023 FINDINGS: Surgical changes and devices: None. Lungs and pleura: No pleural effusions or pneumothorax. Lungs are clear. Mediastinum: Mediastinal contours appear normal. Heart size is normal. Bones and chest wall: No suspicious bony lesions. Overlying soft tissues appear unremarkable. IMPRESSION: No acute cardiopulmonary process. Reviewed by: Abiel Keys MD on 08/31/2023 11:00 AM ANAT Approved by: Abiel Keys MD on 08/31/2023 11:00 AM ANAT Station ID: [id number]
[2023-08-31 12:27] LABS: BILIRUBIN,URINE NEGATIVE (NEGATIVE); GLUCOSE, URINE (UA) NEGATIVE (NEGATIVE); KETONES,URINE (UA) NEGATIVE (NEGATIVE); LEUKOCYTE ESTERASE, URINE NEGATIVE (NEGATIVE); NITRITE,URINE NEGATIVE (NEGATIVE); OCCULT BLOOD,URINE NEGATIVE (NEGATIVE); PROTEIN,URINE NEGATIVE (NEGATIVE); UROBILINOGEN,URINE 0.2 (NORMAL) E.U./dL (NORMAL)
[2023-08-31 12:32] LABS: CLARITY,URINE CLEAR (CLEAR)
[2023-08-31 12:40] LABS: AMPHETAMINE SCREEN,URINE NEGATIVE (NEGATIVE); BARBITURATE SCREEN,UR NEGATIVE (NEGATIVE); BENZODIAZEPINES SCREEN, URINE NEGATIVE (NEGATIVE); BUPRENORPHINE SCREEN, URINE NEGATIVE (NEGATIVE); COCAINE SCREEN URINE NEGATIVE (NEGATIVE); METHADONE SCREEN, URINE NEGATIVE (NEGATIVE); METHAMPHETAMINES SCREEN, URINE NEGATIVE (NEGATIVE); OPIATE SCREEN, URINE NEGATIVE (NEGATIVE); OXYCODONE SCREEN, URINE NEGATIVE (NEGATIVE); THC CANNABINOID SCREEN, URINE POSITIVE (NEGATIVE); TRICYCLIC ANTIDEPRESSANT,URINE NEGATIVE (NEGATIVE)
[2023-08-31 13:12] VITALS: BP 137/94
[2023-08-31 13:42] VITALS: O2SAT 94
== END 2023-08-31 13:32 | disposition home or self-care (01) ==
LOC: ED 10:58
DX: R55 Syncope and collapse (principal)
CPT/HCPCS: 36415; 80053; 80306; 81001; 81003; 82077; 83690; 84484; 85025; 87086; 93005; 99284

== ENCOUNTER 2023-11-05 06:25 | Emergency (ER) | payer OTHER ==
[2023-11-05 06:45] LABS: BASOPHILS % (AUTO) 0.3 %; EOSINOPHILS # (AUTO) 0.1 10^3/uL (0.0-0.7); EOSINOPHILS % (AUTO) 1.7 %; HCT - HEMATOCRIT 39.7 % (42.0-52.0); HGB - HEMOGLOBIN 13.1 g/dL (14.0-18.0); LYMPHOCYTES # (AUTO) 2.3 10^3/uL (1.5-3.5); MEAN CORPUSCULAR HEMOGLOBIN 28.9 pg (27.0-31.0); MEAN CORPUSCULAR VOLUME 87.6 fL (80.0-94.0); MEAN PLATELET VOLUME 8.3 fL (7.4-11.4); MONOCYTES # (AUTO) 0.6 10^3/uL (0.0-1.0); MONOCYTES % (AUTO) 9.8 %; NEUTROPHILS # (AUTO) 3.3 10^3/uL (1.5-6.6); NEUTROPHILS % (AUTO) 51.9 %; PLT - PLATELET COUNT 211 10^3/uL (130-450); RED BLOOD COUNT 4.53 10^6/uL (4.70-6.10); RED CELL DISTRIBUTION WIDTH 13.5 % (12.0-15.0); WHITE BLOOD COUNT 6.3 x10^3/uL (4.8-10.8)
[2023-11-05 06:59] LABS: ALBUMIN 4.2 g/dL (3.2-5.5); ALBUMIN/GLOBULIN RATIO 1.9 (1.0-2.2); ALKALINE PHOSPHATASE 56 IU/L (42-121); ALT ALANINE AMINOTRANSFERASE 18 IU/L (10-60); AST ASPARTATE AMINOTRANSFERASE 18 IU/L (10-42); BILIRUBIN,TOTAL 0.8 mg/dL (0.2-1.0); BUN - BLOOD UREA NITROGEN 12 mg/dL (6-20); CALCIUM 9.2 mg/dL (8.5-10.3); CARBON DIOXIDE - CO2 32 mmol/L (21-32); CHLORIDE 96 mmol/L (101-111); CREATININE 0.9 mg/dL (0.6-1.3); GFR - MDRD 90 (>89); GLUCOSE 188 mg/dL (74-104); POTASSIUM 3.5 mmol/L (3.5-4.5); SODIUM 134 mmol/L (135-145); TOTAL PROTEIN 6.4 g/dL (6.4-8.9)
[2023-11-05 07:04] LABS: LIPASE < 10 U/L (11-82)
--- NOTE | 2023-11-05 07:17 | ED Physician Documentation ---
History of Present Illness - Stated complaint Stated Complaint: OD - Chief complaint Chief Complaint: General - History obtained from History obtained from: Patient, Family - Additonal information Additional information: This is a 48-year-old gentleman who for the last couple of months has had issues with "syncope". He was hospitalized in August at [facility] where he had extensive testing done including EEG and echocardiogram. He has a history of issues with narcotics per the and she assumes he is using fentanyl. The last few times this has happened he was aroused by Narcan. Patient does complain of headache and he has a history of headaches. He may have hit his head on the way down. He does not remember passing out. The describes him as looking blue and unconscious. She wanted him tested for fentanyl and presumes he was using. Previous drug screens have been negative. I asked the to exit the room and asked the patient about drug abuse and he admits to using street but, "oxycodone" and I told him that this is most likely going to be illicit fentanyl as opposed to actual oxycodone. I offered both social work consultation as well as plasma fentanyl screening (the requested plasma fentanyl screening) but with the out of the room, the patient declined fentanyl screening PD PAST MEDICAL HISTORY - Past Medical History Past Medical History: Yes Cardiovascular: None Respiratory: None Neuro: Migraines, Seizure disorder, Other Endocrine/Autoimmune: None GI: None : None HEENT: None Psych: None Musculoskeletal: None Derm: None - Past Surgical History Past Surgical History: Yes General: Other Ortho: Spine surgery Derm: Other - Present Medications Home Medications: Ambulatory Orders Medication Instructions Recorded Confirmed Levetiracetam [Keppra] 500 mg PO BID 11/05/23 11/05/23 - Allergies Allergies/Adverse Reactions: Allergies Allergy/AdvReac Type Severity Reaction Status Date / Time No Known Drug Allergies Allergy Verified 11/05/23 06:32 - Social History Does the pt smoke?: No Smoking Status: Never smoker Does the pt drink ETOH?: Yes Does the pt have substance abuse?: No - Immunizations Immunizations are current?: Yes - POLST Patient has POLST: No PD ED PE NORMAL - Vitals Vital signs reviewed: Yes - General General: Alert and oriented X 3, No acute distress - HEENT HEENT: PERRL, EOMI - Neck Neck: Supple, no meningeal sign, No bony TTP - Cardiac Cardiac: No murmur, Other (Mild resting tachycardia) - Respiratory Respiratory: No respiratory distress, Clear bilaterally - Abdomen Abdomen: Non tender - Back Back: No CVA TTP, No spinal TTP - Derm Derm: Normal color, Warm and dry - Extremities Extremities: No edema, No calf tenderness / cord - Neuro Neuro: Alert and oriented X 3, grant coordinator 2-12 intact, No motor deficit, No sensory deficit, Normal speech Eye Opening: Spontaneous Motor: Obeys Commands Verbal: Oriented GCS Score: 15 - Psych Psych: Normal mood, Normal affect Results - Vitals Vitals: Vital Signs - 24 hr 11/05/23 11/05/23 11/05/23 06:33 08:36 10:00 Temperature 36.5 C Heart Rate 110 H 88 93 Respiratory 20 12 16 Rate Blood Pressure 158/96 H 139/85 H 165/98 H O2 Saturation 96 96 96 If not protocol 2 2 : Oxygen Flow, liters/minute Oxygen O2 Source Nasal cannula - Labs Labs: Laboratory Tests 11/05/23 11/05/23 11/05/23 06:30 06:30 06:30 WBC 6.3 RBC 4.53 L Hgb 13.1 L Hct 39.7 L MCV 87.6 MCH 28.9 MCHC 33.0 RDW 13.5 Plt Count 211 MPV 8.3 Neut # (Auto) 3.3 Lymph # (Auto) 2.3 [place] # (Auto) 0.6 Eos # (Auto) 0.1 Baso # (Auto) 0.0 Absolute Nucleated RBC 0.00 Nucleated RBC % 0.0 Sodium 134 L Potassium 3.5 Chloride 96 L Carbon Dioxide 32 Anion Gap 6.0 BUN 12 Creatinine 0.9 Estimated GFR (MDRD) 90 Glucose 188 H Calcium 9.2 Total Bilirubin 0.8 AST 18 ALT 18 Alkaline Phosphatase 56 Troponin I High Sens 4.2 Total Protein 6.4 Albumin 4.2 Globulin 2.2 Albumin/Globulin Ratio 1.9 Lipase < 10 L - Rads (name of study) CT of the head was unremarkable. Relevant Findings:: Final report received, EMP independent interpretation of test PD Medical Decision Making - ED course ED course: He presents after recurrent syncope related to likely fentanyl and he admits to using "oxycodone" but on the street which I told him was likely to be fentanyl. He declined social work consultation and plasma fentanyl screening. He admits to being on Suboxone in the past for this but he got tired of that but when challenged by me "when was your life better, on Suboxone or now?" He admitted that his life on Suboxone was better than now. On recheck at 8:43 AM he is awake alert and appropriate. Now agreeable to seeing social work. Prior to discharge she did develop a single raised welt on the mid sternum from the AED pads which had been removed. Hydrocortisone was applied. Departure - Departure Disposition: 01 Home, Self Care Clinical Impression: Accidental fentanyl overdose Qualifiers: Encounter type: initial encounter Qualified Code(s): T40.411A - Poisoning by fentanyl or fentanyl analogs, accidental (unintentional), initial encounter Headache Qualifiers: Headache type: unspecified Headache chronicity pattern: episodic headache Condition: Stable Record reviewed to determine appropriate education?: Yes Instructions: ED Drug Abuse General Comments: You were seen today after passing out after what is likely a fentanyl overdose. As discussed, most of the oxycodone bought on the street is actually fentanyl manufactured to look like prescription oxycodone. This is corroborated by previous drug screens that were negative for oxycodone. We do not have her ready easily accessible test for fentanyl unfortunately. Follow the instructions of the social services assistant and I would encourage you to enroll in outpatient detox. Return for new or worsening symptoms. Do not drive today. Forms: PCP List
[2023-11-05] MEDS: NALOXONE HCL NASAL SPRAY KIT NAS STA (08:30)
--- NOTE | 2023-11-05 08:37 | CT Report ---
PROCEDURE: Head WO INDICATIONS: HERNANDEZ, poss innj TECHNIQUE: Noncontrast 4.5 mm thick angled axial sections acquired from the foramen magnum to the vertex. For r adiation dose reduction, the following was used: automated exposure control, adjustment of mA and/or kV according to patient size. COMPARISON: None. FINDINGS: Image quality: Excellent. CSF spaces: Basal cisterns are patent. No extra-axial fluid collections. Ventricles are normal in size and shape. Brain: No midline shift. No intracranial masses or hemorrhage. Lau-white matter interface is norm al. Skull and face: Calvarium and visualized facial bones are intact, without suspicious lesions. Sinuses: Visualized sinuses and mastoids are clear. IMPRESSION: No acute intracranial pathology. Reviewed by: Manuel Love MD on 11/05/2023 8:36 AM PDT Approved by: Manuel Love MD on 11/05/2023 8:36 AM PDT Station ID: [id number]
[2023-11-05 10:20] VITALS: BP 165/98
[2023-11-05] MEDS: HYDROCORTISONE 1% OINTMENT 28 GM TUBE TOP STA (10:22)
[2023-11-05 10:43] VITALS: O2SAT 94
== END 2023-11-05 10:39 | disposition home or self-care (01) ==
LOC: EDUNIT# → ED 06:25
DX: T40.411A Poisoning by fentanyl or fentanyl analogs, accidental (unintentional), initial encounter (principal); L50.6 Contact urticaria
CPT/HCPCS: 36415; 70450; 80053; 83690; 84484; 85025; 93005; 99284; A9270; G2215